=== PATIENT | male | born 1970 | race African-American/Black ===

== ENCOUNTER 2018-07-04 09:13 | Day surgery (SDC) | payer OTHER ==
[2018-07-04] VITALS (13 sets, daily range): BP systolic 108–120; BP diastolic 65–86
[~2018-07-04] VITALS: Ht 198.1 cm; Wt 131.5 kg
--- NOTE | 2018-07-04 07:07 | Pre-Procedure Note/Attestation ---
Pre-Procedure Note/Attestation Complete Prior to Procedure Planned Procedure: left Procedure Narrative: knee diagnostic arthroscopy, possible menisectomy, possible synovectomyt Indications for Procedure Pre-Operative Diagnosis: left knee internal derangement Attestation I attest that I discussed the nature of the procedure; its benefits; risks and complications; and alternatives (and the risks and benefits of such alternatives ), prior to the procedure, with the patient (or the patient's legal physician representative). I attest that, if there was a reasonable possibility of needing a blood transfusion, the patient (or the patient's legal physician representative) was given the [facility] standardized written summary, pursuant to the [place] Blood Safety Act ([place] Health and Safety Code # 1645, as amended). I attest that I re-evaluated the patient just prior to the surgery and that there has been no change in the patient's H&P, except as documented below: Micha Hernandez MD Jul 04, 2018 07:07
--- NOTE | 2018-07-04 07:08 | Operative Note - PDOC ---
Operative Note Operative Note Pre-op Diagnosis: left knee internal derangement Procedure: see op report Post-op Diagnosis: same as pre-op plus Operative Findings: consistent w/pre-op dx studies Anesthesia: local, MAC Specimen: none Complications: none Condition: stable Estimated Blood Loss: none Implant(s) used?: No Micha Hernandez MD Jul 04, 2018 07:08
[~2018-07-04 09:13] MED LIST: D5 1/2NS 1,000 ML IV SCH; DESCOVY 200-251 EACH PO; METFORMIN HCL500 M1 ORAL; NORVIR100 MG ORAL; REYATAZ300 MG ORAL; SELENIUM50 MCG ORAL; Tylenol #3 tab (300mg/30mg) ORAL PRN; ceFAZolin 1gm in D5W 55ml IVP ONE; celeBREX 200mg Cap **SURGERY PATIENTS ONLY ORAL ONE; oxyCONTIN 20mg tab ORAL ONE
[2018-07-04] MEDS ORDERED: oxyCONTIN 20mg tab ORAL ONE (10:03)
[2018-07-04] MEDS ORDERED: celeBREX 200mg Cap **SURGERY PATIENTS ONLY ORAL ONE (10:03)
[2018-07-04] MEDS ORDERED: Lidocaine 1% 10mg/ml/Epi 0.005mg/ml 30ml vial INJ ONE (11:00)
[2018-07-04] MEDS ORDERED: Morphine Sulfate PF 10 ML ONE (11:00)
[2018-07-04] MEDS ORDERED: Ketorolac 30mg Inj ONE (11:00)
[2018-07-04] MEDS ORDERED: LR 1000ml ONE (11:00)
[2018-07-04] MEDS ORDERED: NS Irrig 4000ml IRRIG ONE (11:00)
[2018-07-04] MEDS ORDERED: Kenalog-40 1ml Vial ONE (11:00)
--- NOTE | 2018-07-04 11:00 | Anethesia Preoperative Eval ---
Anesthesia Pre-op PMH/ROS General Date of Evaluation: Jul 04, 2018 Time of Evaluation: 10:59 Anesthesiologist: jose ASA Score: ASA 2 Mallampati Score Class I : Soft palate, uvula, fauces, pillars visible Class II: Soft palate, uvula, fauces visible Class III: Soft palate, base of uvula visible Class IV: Only hard plate visible Mallampati Classification: Class II Surgeon: aj Diagnosis: left knee derangement Surgical Procedure: left knee Anesthesia History: none Family History: no anesthesia problems Allergies: Coded Allergies: CODEINE (Verified Allergy, Mild, 07/03/18) ITCHING AND RASH Past Medical History Cardiovascular: Denies: HTN, CAD, MS, valve dz, arrhythmia, other Pulmonary: Denies: asthma, COPD, PRATIBHA, other Gastrointestinal/Genitourinary: Denies: GERD, CRI, ESRD, other Neurologic/Psychiatric: Denies: dementia, CVA, depression/anxiety, TIA, other Endocrine: Reports: DM; Denies: hypothyroidism, steroids, other HEENT: Denies: cataract (L), cataract (R), glaucoma, [place] (L), [place] (R), other Hematology/Immune: Denies: anemia, DVT, bleeding disorder, other PMH Narrative: HIV positive Anesthesia Pre-op Phys. Exam Physician Exam Last Vital Signs Date Time Temp Pulse Resp B/P (MAP) Pulse Ox O2 Delivery O2 Flow Rate FiO2 07/04/18 09:52 Room Air 07/04/18 09:46 97.6 65 20 118/72 (87) 99 97.6 Constitutional: NAD Neurologic: CN 2-12 intact Cardiovascular: RRR Respiratory: CTA Gastrointestinal: S/NT/ND Airway Exam Mallampati Classification 2 Mallampati Score: Class II MO: full Dentures: no upper, no lower Anesthesia Pre-op A/P Studies Pre-op Studies: EKG - sr Risk Assessment & Plan Assessment: denies changes Plan: general Pre-Antibiotics Drug: ancef Given Within 1 Hr of Incision: Yes Time Given: 11:30 Sybil Heaton CRNA Jul 04, 2018 11:00
[2018-07-04] MEDS ORDERED: Midazolam 2mg/2ml Inj ONE (11:13)
[2018-07-04] MEDS ORDERED: fentaNYL 100 mcg/2 mL IV ONE (11:13)
[2018-07-04] MEDS ORDERED: Lidocaine 1% MPF 10mg/ml 5ml ONE (11:27)
[2018-07-04] MEDS ORDERED: Metoclopramide 10mg/2ml Inj ONE (11:27)
[2018-07-04] MEDS ORDERED: Propofol 200mg/20ml IV ONE (11:27)
[2018-07-04] MEDS: Bupivacaine 0.5% Inj 30 ml vial INJ ONE ×2 (11:37→11:40)
--- NOTE | 2018-07-04 12:09 | Immediate Post-Op Evaluation ---
Immediate Post-Op Evalulation Immediate Post-Op Evalulation Procedure: left knee internal derangement Date of Evaluation: Jul 04, 2018 Time of Evaluation: 12:08 IV Fluids: 500 Blood Pressure Systolic: 111 Blood Pressure Diastolic: 75 Pulse Rate: 71 Respiratory Rate: 14 O2 Sat by Pulse Oximetry: 100 Temperature (Fahrenheit): 97.4 Nausea: No Vomiting: No Complications none Patient Status: awake, reacts, patent Hydration Status: adequate Drug: ancef Given Within 1 Hr of Incision: Yes Time Given: 11:30 Sybil Heaton CRNA Jul 04, 2018 12:09
--- NOTE | 2018-07-04 13:51 | 48 Hour Post Anesthesia Eval ---
Post Anesthesia Evaluation Procedure: left knee internal derangement Date of Evaluation: Jul 04, 2018 Time of Evaluation: 13:50 Blood Pressure Systolic: 136 0: 86 Pulse Rate: 80 Respiratory Rate: 14 Temperature (Fahrenheit): 97.8 O2 Sat by Pulse Oximetry: 98 Airway: patent Nausea: No Vomiting: No Hydration Status: adequate Cardiopulmonary Status: stable Mental Status/LOC: patient returned to baseline Follow-up Care/Observations: na Post-Anesthesia Complications: none Follow-up care needed: N/A Sybil Heaton CRNA Jul 04, 2018 13:50
--- NOTE | 2018-07-04 21:45 | Operative Note - Dictated ---
DATE OF OPERATION: 07/04/2018 PREOPERATIVE DIAGNOSIS: Left knee internal derangement, possible ACL tear. POSTOPERATIVE DIAGNOSES: 1. Grade 3 chondral damage, trochlear groove. 2. Grade 3 chondral damage, medial femoral condyle. 3. Multiple intra-articular loose bodies. 4. Hypertrophic fat pad/synovial tissue. PROCEDURE: 1. Left knee removal of loose bodies. 2. Left knee excision of retropatellar fat pad/synovial tissue of medial, lateral, patellofemoral compartment. 3. Gentle chondroplasty of medial and patellofemoral compartment. SURGEON: Micha Hernandez M.D. ANESTHESIA: MAC with local. INDICATION FOR PROCEDURE: The patient is a gentleman, who has had continued left knee pain. He had an MRI which showed possible tear of the ACL. He continued to have issues. Therefore, he elected to undergo left knee arthroscopy, possible ACL evaluation with possible meniscectomy, synovectomy, chondroplasty based on intraoperative findings. Risks, limitations, expectations, and complications of procedure were discussed in detail. All questions were addressed. DESCRIPTION OF PROCEDURE: After informed consent was obtained, the patient was brought to the operating room. The patient was placed supine under general anesthesia. Left leg was prepped and draped in sterile manner. Time-out was performed. Ancef was administered. An inferolateral stab incision was then made. Trocar was introduced into the knee joint. There was significant hypertrophic fat pad and synovial tissue in the patellofemoral compartment. There were multiple intra-articular loose bodies found in the suprapatellar pouch area. Medial compartment was entered and there was an area of full-thickness chondral damage. A medial working portal was established. The posterior horn of medial meniscus was then evaluated and noted to be intact. The multiple intra-articular loose bodies were then removed using a combination of a shaver and suction. Once that was done, the excision of the fat pad and synovial tissue was performed in the anterior compartment, medial compartment, intercondylar notch, and lateral compartment. The ACL was probed and actually noted to be intact. Lateral compartment was entered. Again, there was a loose body, but the meniscus itself was intact. At this point, the camera was positioned in the patellofemoral compartment and excision of the fat pad and synovial tissue was completed. The camera was then placed in the medial working portal and synovectomy of the patellofemoral and lateral compartment was performed. Once that was completed, instruments were removed. Portal sites were closed with 3-0 Monocryl sutures. Steri-Strips and a sterile dressing were applied. The patient was awoken and taken to recovery room with stable vital signs. ESTIMATED BLOOD LOSS: None. COMPLICATIONS: None. SPECIMENS: None. IMPLANTS: None. Micha Hernandez M.D. DR: CHRISTI JOB#: [id number] CC: GALILEO
== END 2018-07-04 14:10 | disposition home or self-care (01) ==
LOC: SUR 09:13
DX: M67.262 Synovial hypertrophy, not elsewhere classified, left lower leg (principal); M79.4 Hypertrophy of (infrapatellar) fat pad; M23.42 Loose body in knee, left knee; M94.8X6 Other specified disorders of cartilage, lower leg
CPT/HCPCS: 29876; 82962; J0690; J1885; J2250; J2274; J2405; J2704; J2765; J3010; J3301; J3490; 94003; 94150